=== PATIENT | male | born 1940 | race Caucasian/White ===

== ENCOUNTER 2017-01-09 06:24 | Day surgery (SDC) | payer MEDICARE, OTHER ==
--- NOTE | ~2017-01-09 | EGD ---
EGD REPORT [facility] [address] [address] NAME: DAMON REAL : [birth year] STATUS : REG [facility]#: [id number] AGE: 76 ADM/REG DATE : 01/09/17 MR#: [id number] REPORT SERV DATE: 01/09/17 DICTATED BY: STAR DYKES DATE: 01/09/17 REPORT STATUS : Draft TRANSCRIBED BY: [employer] DATE: 01/09/17 [facility] Center Patient Name: Damon Real Date of : 1940 Attending MD: STAR DYKES MD Procedure Date No Time: 01/09/2017 Procedure: Colonoscopy Indications: High risk colon cancer surveillance: Personal history of colonic polyps, FH of Colonic Polyps - 1st degree relative Referring MD: LISA CLOUD Medicines: as per anesthesia Complications: No immediate complications. Procedure: Pre-Anesthesia Assessment: - ASA Grade Assessment: II - A patient with mild systemic disease. After I obtained informed consent, the scope was passed under direct vision. Throughout the procedure, the patient's blood pressure, pulse, and oxygen saturations were monitored continuously. The [facility] [id number] was introduced through the anus and advanced to the cecum, identified by appendiceal orifice and ileocecal valve. The colonoscopy was performed without difficulty. The patient tolerated the procedure. The quality of the bowel preparation was adequate to identify polyps. Findings: The perianal and digital rectal examinations were normal. Two sessile polyps were found in the ascending colon. The polyps were 3 to 5 mm in size. These polyps were removed with a jumbo cold forceps. Resection and retrieval were complete. A few small and large-mouthed diverticula were found in the sigmoid colon. Internal hemorrhoids were found during endoscopy and were mild. Impression: - Two 3 to 5 mm polyps in the ascending colon. Resected and retrieved. - Diverticulosis in the sigmoid colon. - Internal hemorrhoids. Recommendation: - Await pathology results. - Repeat colonoscopy for surveillance based on pathology results. Procedure Code(s): --- Professional --- EGD REPORT [facility] [address] [id number] NAME: DAMON REAL : [birth year] STATUS : REG [facility] PAT#: [id number] AGE: 76 ADM/REG DATE : 01/09/17 MR#: [id number] REPORT SERV DATE: 01/09/17 DICTATED BY: STAR DYKES DATE: 01/09/17 REPORT STATUS : Draft TRANSCRIBED BY: [employer] DATE: 01/09/17 [id number], Colonoscopy, flexible, proximal to splenic flexure; with biopsy, single or multiple Diagnosis Code(s): --- Professional --- D12.2, Benign neoplasm of ascending colon K64.8, Other hemorrhoids K57.30, Diverticulosis of large intestine without perforation or abscess without bleeding Z86.010, Personal history of colonic polyps Z83.71, Family history of colonic polyps CPT copyright 2013 [employer]. All rights reserved. The codes documented in this report are preliminary and upon coder operator review may be revised to meet current compliance requirements. STAR DYKES MD 01/09/2017 9:00 AM This report has been signed electronically. Number of Addenda: 0 Note Initiated On: 01/09/2017 8:20 AM Scope Withdrawal Time 0 hours 11 minutes 24 seconds [address] [place] [address]
[~2017-01-09 06:24] MED LIST: ASAB PO; COZAAR100 MG PO; MULTIPLE VIT PO; OSTEO BI-FLEX1 EACH PO; PROSCAR5 PO; UROXATRAL PO; VITAMIN D31000 UNIT PO; ZOCOR20 PO
== END 2017-01-09 23:59 | disposition home or self-care (01) ==
LOC: DMU 06:24
PROVIDERS: Internal Medicine Gastroenterology
PROC: 0DBK8ZZ Excision of Ascending Colon, Via Natural or Artificial Opening Endoscopic (ICD-10-PCS; principal; 2017-01-09 08:00)
DX: Z12.11 Encounter for screening for malignant neoplasm of colon (principal); D12.2 Benign neoplasm of ascending colon; K64.8 Other hemorrhoids; K57.30 Diverticulosis of large intestine without perforation or abscess without bleeding; Z86.010 Personal history of colon polyps; Z83.71 Family history of colonic polyps; Z85.828 Personal history of other malignant neoplasm of skin; Z98.890 Other specified postprocedural states; H91.90 Unspecified hearing loss, unspecified ear; I10 Essential (primary) hypertension; E78.00 Pure hypercholesterolemia, unspecified; M17.0 Bilateral primary osteoarthritis of knee
CPT/HCPCS: 88305